=== PATIENT | female | born 1970 | race Caucasian/White ===

== ENCOUNTER 2021-08-30 07:16 | Emergency (ER) | payer OTHER, SELFPAY ==
[2021-08-30 07:25] VITALS: BP 154/91; PULSE 71; RESP 16; TEMP 37.1; O2SAT 99
--- NOTE | 2021-08-30 08:23 | W.ED.GENAD ---
Discharge Plan Disposition Patient Disposition: HOME Condition: Stable Discharge Details Clinical Impression: Headache, COVID-19 Primary Care Provider: Carmen Bella ED Provider: Chasity Boyd Home Meds and New Rx's Prescriptions: Continued levothyroxine [Synthroid] 50 MCG tablet 50 mcg PO DAILY vitamin B complex [B-Complex] 1 EACH tablet 1 tab PO DAILY multivitamin 1 EACH capsule 1 tab PO DAILY Fish Oil 500 MG capsule 1,000 mg PO DAILY Discharge Instructions Instructions: Migraine Headache (ED), General Headache (ED) Additional Instructions: Please return immediately to the emergency department if you develop any new or worsening symptoms, if your condition does not improve as expected, or if you become otherwise concerned. It is extremely important that you call soon as possible to make an appointment to be seen in follow-up for this visit by your primary care doctor. Referrals: Carmen Bella [Primary Care Provider] - Discharge Data Discharge Date/Time-TO BE ENTERED AT DEPARTURE: 08/30/21 11:35 Medical Decision Making Nelsy Brewer is a 50-year-old woman history as hypothyroidism, sleep apnea presenting to the emergency department with headache. Patient reports that she tested positive for COVID 7 days ago after experiencing what she thought were symptoms of sinusitis (frontal sinus pain, rhinorrhea). Patient reports that since testing positive she has had continued sinus pain, rhinorrhea, intermittent headache, generalized body aches without focality, and fatigue. She reports very mild intermittent dry cough. She denies fever, shortness of breath, rash, swelling, vomiting, diarrhea. Patient reports that she has been eating and drinking as usual over the past few days. She reports that she woke up in the middle the night last night with worsening headache. Patient reports that headache is over her right forehead and right temporal area extending into the right preauricular area. She reports that headache is worse with bending forward. She states that she does have a history of migraines, however this does not feel like a migraine to her as she has none of her usual visual auras. She does note photophobia. She states that this is not the worst headache in her life in severity and had a headache of similar severity 2 weeks ago and several times in the past, but that unilateral nature symptoms and location of pain is not typical for her. She denies any other focal pain, denies vision changes. On exam Pt is well and non-toxic appearing. No meningismus. Benign neurologic exam. There is no TTP of the forehead, temporal region, or pre-auricular area. NO mastoid TTP. Concern for atypical migraine, other benign headache, headache secondary to COVID, other. Doubt temporal arteritis. Exam/history at this time is not consistent with meningitis, subarachnoid hemorrhage, other intracranial hemorrhage, mastoiditis, central venous thrombosis, CVA, acute carotid artery pathology. Plan for IV placement, IV fluid hydration, IV Compazine, IV Benadryl, screening labs. Labs reviewed. WBC 9.68, ESR 41, CRP 0.55. On reassessment Pt reports that her headache has resolved, that she feels much better, and feels ready for d/c to home. At this time exam/hx/results not consistent with acute emergent condition. I had a discussion with Patient regarding return to emergency department precautions, home care, and importance of outpatient follow-up. Pt verbalizes understanding of the plan and is amenable. Patient discharged to home with clear plan for outpatient follow-up. All questions were answered. Disposition decision was made weighing the risks and benefits of hospitalization versus outpatient treatment, the risk for further decompensation, and the patient's wishes. Medical Records Medical records reviewed: Yes I reviewed the patient's medical records. Lab Data Lab results reviewed: Yes I reviewed the patient's lab results. Labs: Laboratory Tests Range/Units 08/30/21 08/30/21 08/30/21 09:00 09:00 09:00 WBC (4.4-10.8) 10^3/uL 9.68 RBC (3.93-5.22) 10^6/uL 4.94 Hgb (11.2-15.7) g/dL 12.8 Hct (36.0-46.0) % 41.0 MCV (80-95) fL 83 MCH (27.0-33.0) pg 25.9 L MCHC (32.0-36.0) % 31.2 L RDW (11.7-14.6) % 12.5 Plt Count (130-400) 10^3/uL 301 MPV (8.0-11.0) fL 8.7 Immature Gran % 0.3 Neutrophils % 70.7 Lymphocytes % 21.7 Monocytes % 5.8 Eosinophils % 1.0 Basophils % 0.5 Nucleated RBC % (0.0-0.3) % 0.0 Absolute Neutrophils (1.2-6.7) 10^3/uL 6.84 H Absolute Lymphocytes (1.2-3.4) 10^3/uL 2.10 Absolute Monocytes (0.1-0.8) 10^3/uL 0.56 Absolute Eosinophils (0.0-0.7) 10^3/uL 0.10 Absolute Basophils (0.0-0.2) 10^3/uL 0.05 ESR (0-20) mm/hr 41 H Sodium (136-145) mmol/L 141 Potassium (3.5-5.1) mmol/L 3.6 Chloride (98-107) mmol/L 104 Carbon Dioxide (21.0-32.0) mmol/L 28.0 Anion Gap (3-11) mmol/L 9.0 BUN (7-18) mg/dL 15 Creatinine (0.55-1.02) mg/dL 1.0 Estimated GFR/1.73 m2 (mL/min/1.73m2) 58.93 Glucose (74-106) mg/dL 126 H Calcium (8.5-10.1) mg/dL 9.3 Total Bilirubin (0.2-1.0) mg/dL 0.3 AST (15-37) U/L 17 ALT (14-59) U/L 25 Alkaline Phosphatase (46-116) U/L 100 C-Reactive Protein (0.0-0.3) mg/dL 0.55 H Total Protein (6.4-8.2) g/dL 7.6 Albumin (3.4-5.0) g/dL 3.7 HPI General Mode of arrival: ambulatory. Date/Time Provider Initiated Documentation: 08/30/21 07:57. Limitations to Documentation: no limitations. Information obtained by: patient, RN notes reviewed and old records reviewed. HPI Narrative: Nelsy Brewer is a 50-year-old woman history as hypothyroidism, sleep apnea presenting to the emergency department with headache. Patient reports that she tested positive for COVID 7 days ago after experiencing what she thought were symptoms of sinusitis (frontal sinus pain, rhinorrhea). Patient reports that since testing positive she has had continued sinus pain, rhinorrhea, intermittent headache, generalized body aches without focality, and fatigue. She reports very mild intermittent dry cough. She denies fever, shortness of breath, rash, swelling, vomiting, diarrhea. Patient reports that she has been eating and drinking as usual over the past few days. She reports that she woke up in the middle the night last night with worsening headache. Patient reports that headache is over her right forehead and right temporal area extending into the right preauricular area. She reports that headache is worse with bending forward. She states that she does have a history of migraines, however this does not feel like a migraine to her as she has none of her usual visual auras. She does note photophobia. She states that this is not the worst headache in her life in severity and had a headache of similar severity 2 weeks ago and several times in the past, but that unilateral nature symptoms and location of pain is not typical for her. She denies any other focal pain, denies vision changes. Related Data Home Medications Medication Instructions Recorded Confirmed levothyroxine 50 mcg tablet 50 mcg PO DAILY 08/12/12 08/30/21 (Synthroid) multivitamin 1 tab PO DAILY 08/12/12 08/30/21 omega-3 fatty acids 500 mg capsule 1,000 mg PO DAILY 08/12/12 08/30/21 (Fish Oil) vitamin B complex (B-Complex 1 tab PO DAILY 08/12/12 08/30/21 tablet) Allergies Allergy/AdvReac Type Severity Reaction Status Date / Time clarithromycin [From Biaxin] Allergy Intermediate Unverified 08/30/21 07:28 Penicillins Allergy Intermediate Unverified 08/30/21 07:28 erythromycin base AdvReac Intermediate Unverified 08/30/21 07:28 [Erythromycin Base] General Stated Complaint: Headache INA: 3 Review of Systems Narrative: Constitutional: denies fevers, reports fatigue Eyes: denies eye pain, vision changes ENT: denies ear pain, dental pain, sore throat, reports rhinorrhea Cardiovascular: denies chest pain, edema Respiratory: denies SOB, reports mild cough GI: denies abdominal pain, vomiting, diarrhea : denies flank pain MSK: denies back pain, neck pain, reports generalized arthralgias/myalgias Skin: denies rash Neuro: denies numbness, weakness, reports headache PFSH All Active Problems (Updated 08/30/21 @ 11:30 by Chasity Boyd MD) Headache (Acute) COVID-19 (Acute) Dysfunctional uterine bleeding (Acute) History of endometrial ablation (Acute) 07/01/20- in [place] Obese body habitus (Acute) Depression (Chronic) Sleep apnea in adult (Acute) Has CPAP Medical History DUB (dysfunctional uterine bleeding) Hyperlipidemia Hypothyroid Surgical History History of conization of cervix History of dilatation and curettage 07/01/20-in [place] Hx of section Hx of LASIK Social History Smoking/Tobacco Use Status: Never Smoking risk assessment performed?: Yes Alcohol Intake: current Alcohol Intake frequency: holidays/special occasions only Alcohol type: beer Drug use: Never Substance use type: does not use Do you feel safe at home: Yes Do you feel safe in your relationship?: Yes Female Reproductive History Menstrual Age of Menarche: 12 Duration of menses: >10 days control method: none and permanent sterilization (vasectomy) History History 1 Para 1 Hx # Term Pregnancies 1 Multiple births Hx # Pregnancies 0 Ectopic pregnancies AB induced Hx Number of Living Children 1 AB spontaneous Exam Narrative Exam Narrative: Constitutional: well and [id number], pleasant, conversing normally HENT: head atraumatic/normocephalic/normal inspection, mucous membranes moist, no tenderness to palpation of the right forehead/temporal area/preauricular area, no edema, no overlying skin changes Eyes: conjunctiva normal, sclera normal, pupils 3mm b/l,ERRLA, EOMI, no nystagmus Neck: no stridor, full painless ROM, trachea midline, supple, no tenderness to palpation of the anterior posterior neck, no anterior posterior cervical lymphadenopathy, neg kernigs and brudzinski signs Resp: normal work of breathing, speaking in full sentences Cardio: normal rate, normal rhythm Skin: warm, dry, normal color, no rash Neuro: alert, not altered, cranial nerves II through XII intact, motor 5 out of 5 throughout, normal tone Ext: no edema, moving all extremities equally Psych: normal mood, normal affect, normal behavior Course Vital Signs Vital signs: Vital Signs Temperature 37.1 C 08/30/21 07:25 Pulse 71 08/30/21 07:25 Respiratory Rate 16 08/30/21 07:25 Blood Pressure 154/91 H 08/30/21 07:25 Pulse Oximetry 99 08/30/21 07:25 Temperature 37.1 C 08/30/21 07:25 Temperature Source Oral 08/30/21 07:25 Pulse 71 08/30/21 07:25 Respiratory Rate 16 08/30/21 07:25 Respiratory Effort Non-Labored 08/30/21 07:30 Blood Pressure 154/91 H 08/30/21 07:25 Blood Pressure Position Sitting 08/30/21 07:25 Pulse Oximetry 99 08/30/21 07:25 Oxygen Delivery Method Room Air 08/30/21 07:25 Oxygen Flow Rate 0 08/30/21 07:25 Pain Level 7 08/30/21 07:30 PAWSS Have you Been Recently Intoxicated or Drunk Within the Last 30 days?: No Have you Ever Experienced Previous Episodes of Alcohol Withdrawal?: No Have you ever Experienced Withdrawal Seizures?: No Have you ever Experienced Delirium Tremens(DT)s?: No Have you ever undergone Alcohol Rehabilitation Treatment (i.e, inpt ot outpatient treatment programs)?: No Have you ever Experienced Blackouts?: No Have you ever Combined Alcohol with other Downers within the last 90 days?: No Have you ever Combined Alcohol with any other Substance of Abuse during the last 90 days?: No Positive Blood Alcohol level on Presentation? [PCS.BAL]: No Evidence of Increased Autonomic Activity (i.e. HR>120, tremor, sweating, agitation, nausea)?: No Result: 0
[2021-08-30] MEDS: Prochlorperazine 10 MG/2 ML VIAL IVP (08:46)
[2021-08-30] MEDS: diphenhydrAMINE 50 MG/ML VIAL 25 MG IVP (08:46)
[2021-08-30] MEDS: Normal Saline 1,000 ML 1000 ML IV (08:47)
[2021-08-30 09:19] VITALS: BP 110/55; PULSE 62; RESP 16; TEMP 36.2; O2SAT 97
[2021-08-30 09:21] LABS: Abs Immature Grans 0.03 10^3/uL (0.0-0.06); Absolute Basophil Count 0.05 10^3/uL (0.0-0.2); Absolute Monocyte Count 0.56 10^3/uL (0.1-0.8); Absolute Neutrophil Count 6.84 10^3/uL (1.2-6.7); Basophils % 0.5; HGB 12.8 g/dL (11.2-15.7); Immature Grans % 0.3; Lymphocytes % 21.7; MCH 25.9 pg (27.0-33.0); MCHC 31.2 % (32.0-36.0); MCV 83 fL (80-95); MPV 8.7 fL (8.0-11.0); Monocytes % 5.8; Neutrophils % 70.7; Platelet Count 301 10^3/uL (130-400); RBC 4.94 10^6/uL (3.93-5.22); RDW 12.5 % (11.7-14.6); RDW-SD 38.2 fL; WBC 9.68 10^3/uL (4.4-10.8)
[2021-08-30 09:26] LABS: ESR 41 mm/hr (0-20)
[2021-08-30 09:39] LABS: ALT 25 U/L (14-59); AST 17 U/L (15-37); Albumin 3.7 g/dL (3.4-5.0); Alkaline Phosphatase 100 U/L (46-116); BUN 15 mg/dL (7-18); Bilirubin, Total 0.3 mg/dL (0.2-1.0); C-Reactive Protein 0.55 mg/dL (0.0-0.3); Calcium 9.3 mg/dL (8.5-10.1); Chloride 104 mmol/L (98-107); Estimated GFR 58.93 (mL/min/1.73m2); Glucose 126 mg/dL (74-106); Potassium 3.6 mmol/L (3.5-5.1); Sodium 141 mmol/L (136-145); Total Protein 7.6 g/dL (6.4-8.2)
[2021-08-30 11:22] VITALS: BP 127/64; PULSE 72; TEMP 36.1; O2SAT 100
[2021-08-30 11:38] VITALS: BP 127/64; PULSE 72; RESP 16; TEMP 36.1; O2SAT 100
== END 2021-08-30 11:35 | disposition home or self-care (01) ==
PROVIDERS: Emergency Provider Student in an Organized Health Care Education/Training Program; PCP Nurse Practitioner Family
DX: R51.9 Headache, unspecified (principal); U07.1 COVID-19
CPT/HCPCS: 36415; 80053; 81025; 85652; 96361; 96374; 96375; 99284; 85025; 86140; J0780; J1200

== ENCOUNTER 2021-11-04 16:47 | Outpatient (REF) | payer BC, SELFPAY ==
[2021-11-04 16:41] LABS: Calculated LDL 135 mg/dL (<100); Cholesterol 205 mg/dL (<200); HDL Cholesterol 61 mg/dL (40-60); TSH (W/Ref FT4) 0.01 uIU/mL (0.36-3.74); Triglyceride 47 mg/dL (<150)
[2021-11-04 17:06] LABS: FREE T4 1.48 ng/dL (0.76-1.46)
== END 2021-11-04 16:48 | disposition home or self-care (01) ==
LOC: NCHCN 16:47
PROVIDERS: PCP Nurse Practitioner Family; Visit Provider Family Medicine
DX: E03.9 Hypothyroidism, unspecified (principal); E78.5 Hyperlipidemia, unspecified; Z13.1 Encounter for screening for diabetes mellitus
CPT/HCPCS: 80061; 83036; 84439; 84443

== ENCOUNTER → 2021-11-29 02:36 | Outpatient (CLI) | payer BC, SELFPAY ==
--- NOTE | 2021-11-29 14:45 | DI.MAMMO_ITS ---
Exam(s) MAMMO SCREENING EXAM: MAMMO SCREENING CLINICAL HISTORY: SCREENING MAMMO FOR BREAST CANCER Z12.31 TECHNIQUE: Mammograms were interpreted according to the usual protocol including computer analysis w [employer] CAD system, tomosynthesis and C-view imaging. COMPARISON: 2012 through 2020 FINDINGS: The breasts are composed of scattered fibroglandular densities, Breast Density category B. No suspicious masses or suspicious microcalcifications are seen. No skin thickening or abnormal axillary lymph nodes are seen. There has been no significant change from prior exams. IMPRESSION: BI-RADS Category 1, Negative mammogram Yearly screening mammography is recommended. Breast Density - Category B, scattered fibroglandular densities. A negative radiographic report should not delay biopsy if a dominant or clinically suspicious mass is present. Up to ten percent of cancers are not identified on mammography. A negative report may reinforce clinical impression. Adenosis and dense breasts may obscure an underlying neoplasm. False positive reports average 6 to 10%. Patient will receive a letter notifying them of these results.
== END ==
PROVIDERS: PCP Nurse Practitioner Family; Visit Provider Family Medicine
DX: Z12.31 Encounter for screening mammogram for malignant neoplasm of breast (principal)
CPT/HCPCS: 77063; 77067

== ENCOUNTER 2022-02-14 19:35 | Outpatient (REF) | payer BC, SELFPAY ==
[2022-02-14 21:21] LABS: TSH (W/Ref FT4) 1.51 uIU/mL (0.36-3.74)
== END 2022-02-14 19:36 | disposition home or self-care (01) ==
LOC: NCHCN 19:35
PROVIDERS: Visit Provider Family Medicine
DX: E03.9 Hypothyroidism, unspecified (principal)
CPT/HCPCS: 84443

== ENCOUNTER 2022-07-27 09:08 | Emergency (ER) | payer OTHER, SELFPAY ==
[2022-07-27] VITALS (8 sets, daily range): BP systolic 119–138; BP diastolic 67–68; PULSE 63–76; TEMP 36.5; O2SAT 99–100
--- NOTE | 2022-07-27 09:15 | DI.RAD_ITS ---
Exam(s) XR LUMBAR SPINE COMPLETE EXAM: XR LUMBAR SPINE COMPLETE CLINICAL HISTORY: Fall, back pain. TECHNIQUE: 2D digital imaging was performed. Five views. COMPARISON: No exams were available for comparison FINDINGS: BONES: No fracture or destructive lesion. Vertebral body heights are maintained. No facet hypertroph y identified. DISKS: Intervertebral disc spaces are maintained. ALIGNMENT: Lumbar spinal alignment is within normal limits. SOFT TISSUE: Normal. IMPRESSION: Unremarkable radiographs of the lumbar spine. DATA REPOSITORY: RADIATION DOSE DELIVERED:
--- NOTE | 2022-07-27 09:15 | DI.RAD_ITS ---
Exam(s) XR PELVIS AP EXAM: XR PELVIS AP CLINICAL HISTORY: Fall. TECHNIQUE: 2D digital imaging was performed. COMPARISON: CR COCCYX ONLY from 12/09/2009 FINDINGS: BONES: No acute fracture is present. No bony destructive lesion is seen. JOINTS: No dislocation present. No joint space narrowing is present. SOFT TISSUE: Normal. IMPRESSION: Unremarkable radiographs of the pelvis. DATA REPOSITORY: RADIATION DOSE DELIVERED:
--- NOTE | 2022-07-27 09:27 | ED.GENADUL_ITS ---
Discharge Plan Disposition Patient Disposition: Home Condition: Stable Discharge Details Clinical Impression: Acute myofascial strain of lumbar region, Fall (on) (from) other stairs and steps, initial encounter Primary Care Provider: Unknown,Unknown ED Provider: Shannon Tristan Home Meds and New Rx's Prescriptions: Continued levothyroxine [Synthroid] 50 MCG tablet 50 mcg PO DAILY vitamin B complex [B-Complex] 1 EACH tablet 1 tab PO DAILY multivitamin 1 EACH capsule 1 tab PO DAILY Fish Oil 500 MG capsule 1,000 mg PO DAILY Discharge Instructions Instructions: Muscle Strain (ED), Fall Prevention (ED) Additional Instructions: Alternate ice and heat. You may continue to use lidocaine patches which you can get [id number]. Please take Tylenol or Ibuprofen with food every 4-6 hours as needed for pain and swelling. X-rays show no evidence of fractures or broken bones at this time. Follow up with primary care provider in 3-5 days. Return to ED sooner if any worsening or concerns. Increase oral fluids. Stand Alone Forms: Work Release Medical Decision Making 51-year-old female presents to the ER via EMS status post a mechanical fall prior to arrival. Patient slipped fell down 4 steps landing on her buttocks and back. She was not able to get up and ambulate after the fall. She reports increased pain with standing. Denies any neck or head pain. No loss of consciousness. She is alert and oriented x4. No other associated symptoms. She does have a past medical history of hypothyroidism, obesity, depression and sleep apnea. She did take Advil this morning. She is declining any analgesia at this time. X-ray of lumbar spine and pelvis ordered. XR WNL. Will road test patient. Discussed x-rays with patient and family who verbalized understanding. I did [place] [address] testing with patient for safe discharge home. Discussed at length analgesia patient is hesitant to take anything that would cause sedation. She is willing to take Toradol and lidocaine patch. She has declined any muscle relaxers at this time or anything stronger. Patient was able to take couple steps forward and backward per staff anesthetist without difficulty. Patient to be discharged home with home care. This text was generated using [employer] system, please disregard any oddities of phrase or misspellings. This text was generated using [employer] system, please disregard any oddities of phrase or misspellings. Imaging Data Radiologic Study: Imaging: X-Ray Radiologist's impression: EXAM: XR PELVIS AP CLINICAL HISTORY: Fall. TECHNIQUE: 2D digital imaging was performed. COMPARISON: CR COCCYX ONLY from 12/09/2009 FINDINGS: BONES: No acute fracture is present. No bony destructive lesion is seen. JOINTS: No dislocation present. No joint space narrowing is present. SOFT TISSUE: Normal. IMPRESSION: Unremarkable radiographs of the pelvis. Radiologic Study #2: Imaging: X-Ray Radiologist's impression: EXAM: XR LUMBAR SPINE COMPLETE CLINICAL HISTORY: Fall, back pain. TECHNIQUE: 2D digital imaging was performed. Five views. COMPARISON: No exams were available for comparison FINDINGS: BONES: No fracture or destructive lesion. Vertebral body heights are maintained. No facet hypertrophy identified. DISKS: Intervertebral disc spaces are maintained. ALIGNMENT: Lumbar spinal alignment is within normal limits. SOFT TISSUE: Normal. IMPRESSION: Unremarkable radiographs of the lumbar spine. HPI General Mode of arrival: EMS . Date/Time Provider Initiated Documentation: 07/27/22 09:21 . Limitations to Documentation: no limitations . Information obtained by: patient, EMS, RN notes reviewed and old records reviewed . HPI Narrative: 51-year-old female presents to the ER via EMS status post a mechanical fall prior to arrival. Patient slipped fell down 4 steps landing on her buttocks and back. She was not able to get up and ambulate after the fall. She reports increased pain with standing. Denies any neck or head pain. No loss of consciousness. She is alert and oriented x4. No other associated symptoms. She does have a past medical history of hypothyroidism, obesity, depression and sleep apnea. She did take Advil this morning. She is declining any analgesia at this time. No shortening or rotation or obvious deformity or crepitus noted on exam. She denies any saddle anesthesia or radiation of pain into her legs. Related Data Home Medications Medication Instructions Recorded Confirmed levothyroxine 50 mcg tablet 50 mcg PO DAILY 08/12/12 07/27/22 (Synthroid) multivitamin 1 tab PO DAILY 08/12/12 07/27/22 omega-3 fatty acids 500 mg capsule 1,000 mg PO DAILY 08/12/12 07/27/22 (Fish Oil) vitamin B complex (B-Complex 1 tab PO DAILY 08/12/12 07/27/22 tablet) Allergies Allergy/AdvReac Type Severity Reaction Status Date / Time clarithromycin [From Biaxin] Allergy Intermediate Unverified 08/30/21 07:28 Penicillins Allergy Intermediate Unverified 08/30/21 07:28 bupropion [From Wellbutrin] AdvReac Intermediate hypertensio Unverified 07/27/22 09:22 n erythromycin base AdvReac Intermediate Unverified 08/30/21 07:28 [Erythromycin Base] General Stated Complaint: Fall/Non TraumaCriteria INA: 3 Review of Systems Musculoskeletal Musculoskeletal: Reports as per HPI, Reports abnormal gait and Reports back pain Neurologic Neurologic: Reports abnormal gait PFSH All Active Problems (Updated 07/27/22 @ 11:12 by Shannon Tristan NP) COVID-19 (Acute) Acute myofascial strain of lumbar region (Acute) Fall (on) (from) other stairs and steps, initial encounter (Acute) Dysfunctional uterine bleeding (Acute) History of endometrial ablation (Acute) 07/01/20- in [place] Obese body habitus (Acute) Depression (Chronic) Sleep apnea in adult (Acute) Has CPAP Medical History DUB (dysfunctional uterine bleeding) Hyperlipidemia Hypothyroid Surgical History History of conization of cervix History of dilatation and curettage 07/01/20-in [place] Hx of section Hx of LASIK Social History Smoking/Tobacco Use Status: Never Smoking risk assessment performed?: Yes Alcohol Intake: current Alcohol Intake frequency: holidays/special occasions only Alcohol type: beer Drug use: Never Substance use type: does not use Do you feel safe at home: Yes Do you feel safe in your relationship?: Yes Female Reproductive History Menstrual Age of Menarche: 12 Duration of menses: >10 days control method: none and permanent sterilization (vasectomy) History History 1 Para 1 Hx # Term Pregnancies 1 Multiple births Hx # Pregnancies 0 Ectopic pregnancies AB induced Hx Number of Living Children 1 AB spontaneous Exam Narrative Exam Narrative: General: Well Developed, Awake and Alert, conversant. Skin: Warm and Dry HEENT: Head: No palpable deformities, Normocephalic Eyes: Pupils PERRLA, EOM's intact. No periorbital eccymosis or step off Ears: Canal patent. Tympanic membranes are clear . No willis's sign, no hemptympanum. Nose/Face: Atraumatic. Facial bones nontender to palpation and stable with manipulation. Mouth/Throat: No intraoral trauma. Teeth and mandible are intact. Neck: No midline tenderness, no step off, no deformity to palpation of C-spine. Trachea midline. Chest: No surface trauma. Nontender without crepitus or deformity. Lungs clear to ausculatation bilaterally. Heart: RRR, no rubs, murmurs or gallop. Abdomen: No abrasions, ecchymosis, or surface trauma. Nondistended. Nontender to palpation no guarding, rebound, or rigidity. Pelvis: Nontender to palpation and stable to compression. Femoral pulses strong and equal Extremities: no surface trauma. Sensation intact. Peripheral pulses intact and equal. Neuro: ANO x4, GCS 15, cranial nerves II through XII intact. Motor and sensory exam nonfocal. Reflexes are symmetric. Course Vital Signs Vital signs: Vital Signs Temperature 36.5 C 07/27/22 09:13 Pulse 76 07/27/22 09:13 Blood Pressure 126/67 07/27/22 09:13 Pulse Oximetry 100 07/27/22 09:13 Temperature 36.5 C 07/27/22 09:13 Temperature Source Oral 07/27/22 09:13 Pulse 76 07/27/22 09:13 Blood Pressure 126/67 07/27/22 09:13 Blood Pressure Position Left Lateral 07/27/22 09:13 Pulse Oximetry 100 07/27/22 09:13 Oxygen Delivery Method Room Air 07/27/22 09:13 Oxygen Flow Rate 0 07/27/22 09:13 Pain Level 9 07/27/22 09:13
[2022-07-27] MEDS: Ketorolac 30 MG/ML VIAL IM (10:20)
[2022-07-27] MEDS: Lidocaine 5% Patch 1 PATCH TP (10:20)
== END 2022-07-27 11:35 | disposition home or self-care (01) ==
PROVIDERS: Emergency Provider Registered Nurse Emergency
DX: S39.012A Strain of muscle, fascia and tendon of lower back, initial encounter (principal); W10.9XXA Fall (on) (from) unspecified stairs and steps, initial encounter
CPT/HCPCS: 96372; 99284; 72110; 72170; J1885

== ENCOUNTER 2025-02-14 09:38 | Outpatient (REF) | payer OTHER, SELFPAY ==
[2025-02-14 19:35] LABS: Anion Gap 9.2 mmol/L (3-11); BUN 13 mg/dL (9-23); CO2 27.8 mmol/L (20.0-31.0); Calcium 10.0 mg/dL (8.3-10.6); Chloride 107 mmol/L (98-107); Cholesterol 240 mg/dL (<200); Glucose 107 mg/dL (74-106); HDL Cholesterol 52 mg/dL (>40); Potassium 3.7 mmol/L (3.5-5.1); Sodium 144 mmol/L (136-145); TSH (W/Ref FT4) 1.55 uIU/mL (0.55-4.78)
[2025-02-14 19:49] LABS: Microalb ug/mg Crea 10.2 ug/mg Cr
== END 2025-02-14 09:39 | disposition home or self-care (01) ==
LOC: NCHCN 09:38
PROVIDERS: Visit Provider Family Medicine
DX: I10 Essential (primary) hypertension (principal); E03.9 Hypothyroidism, unspecified; Z13.220 Encounter for screening for lipoid disorders
CPT/HCPCS: 80048; 80061; 82043; 82570; 84443